=== PATIENT | female | born 1960 | race Caucasian/White ===

== ENCOUNTER → 2024-06-02 | Outpatient (REF) | payer MEDICARE ==
[2024-06-02 18:04] LABS: APPEARANCE, URINE HAZY (CLEAR); BACTERIA, URINE AUTO NEGATIVE (NEGATIVE); BILIRUBIN, URINE AUTO NEGATIVE (NEGATIVE); BLOOD, URINE BLOOD 2+ (NEGATIVE); COLOR, URINE YELLOW (YELLOW); GLUCOSE, URINE (UA) AUTO 3+ mg/dL (NEGATIVE); KETONE, URINE AUTO NEGATIVE (NEGATIVE); LEUKOCYTE ESTERASE, URINE AUTO NEGATIVE (NEGATIVE); MUCUS, URINE SMALL (NEGATIVE); NITRITE, URINE AUTO NEGATIVE (NEGATIVE); PROTEIN, URINE AUTO NEGATIVE (NEGATIVE); RBC, URINE AUTO 30 /HPF (0-3); SPECIFIC GRAVITY URINE AUTO 1.016 (1.002-1.035); SQUAMOUS EPITHELIAL CELL UR AU 0 /HPF (0-6); UROBILINOGEN, URINE AUTO 0.2 mg/dL (0.0-2.0); WBC, URINE AUTO 6 /HPF (0-3)
== END ==
LOC: M SMT 17:08
PROVIDERS: ATTEND Nurse Practitioner Family
DX: N20.0 Calculus of kidney (principal)

== ENCOUNTER 2024-07-07 11:04 | Day surgery (SDC) | payer MEDICARE ==
[~2024-07-07] VITALS: Ht 157.5 cm; Wt 61.7 kg
[~2024-07-07 11:04] MED LIST: ALEN70TA82 PO; GLIP-320 PO; HYDR-3713 PO; METF10004 PO; ROSU20TA86 PO; THERTAB52 PO; TRIA37.577 PO
[2024-07-07] MEDS ORDERED: LR 1,000 ML IV SCH (11:15)
[2024-07-07] MEDS ORDERED: LIDOCAINE 2% 100MG/5ML SDV (FOR ANES.) As Ordered ONE (13:06)
[2024-07-07] MEDS ORDERED: propofoL 200 MG/20 ML VIAL As Ordered ONE (13:06)
[2024-07-07] MEDS ORDERED: fentaNYL 100 MCG/2 ML INJECTION As Ordered ONE (13:07)
[2024-07-07] MEDS: ISOVUE-300 61% 100ML VIAL As Ordered ONE (13:22)
[2024-07-07] MEDS: ceFAZolin SOD 2 GM IV ONCE IV ONE (13:49)
[2024-07-07] MEDS ORDERED: PHENYLephrine 500MCG 5ML (100MCG/ML) SYRINGE As Ordered ONE (14:08)
[2024-07-07] MEDS ORDERED: ONDANSETRON 4MG 2ML VIAL As Ordered ONE (14:16)
[2024-07-07] MEDS ORDERED: KETOROLAC 30 MG/ML 1ML VIAL As Ordered ONE (14:16)
[2024-07-07] MEDS ORDERED: oxyCODONE 5MG TAB PO PRN (14:45)
[2024-07-07] MEDS ORDERED: ONDANSETRON 4MG 2ML VIAL IV PRN (14:45)
[2024-07-07] MEDS ORDERED: fentaNYL 100 MCG/2 ML INJECTION IV PRN (14:45)
[2024-07-07] MEDS ORDERED: PYRI1TAB5 PO (14:52)
[2024-07-07] MEDS ORDERED: MACR100C43 PO (14:52)
[2024-07-07] MEDS ORDERED: OXYB5TAB14 PO (14:52)
[2024-07-07 16:55] VITALS: BP 117/65; TEMP 97.3; O2SAT 98
== END 2024-07-07 17:07 | disposition home or self-care (01) ==
LOC: M SDC 11:04
PROVIDERS: ATTEND Urology
DX: N20.1 Calculus of ureter (principal); E11.9 Type 2 diabetes mellitus without complications; I10 Essential (primary) hypertension; E78.5 Hyperlipidemia, unspecified; Z87.891 Personal history of nicotine dependence; Z79.84 Long term (current) use of oral hypoglycemic drugs; Z79.899 Other long term (current) drug therapy; Z88.0 Allergy status to penicillin
CPT/HCPCS: 52356; 76000; 82365; C1769; C1894; C2617; J0690; J1885; J2371; J2405; J3010